=== PATIENT | female | born 1995 | race Caucasian/White ===

== ENCOUNTER 2017-03-07 11:36 | Emergency (ER) | payer SELFPAY ==
[2017-03-07 11:41] VITALS: BP 127/60; PULSE 104; RESP 20; TEMP 98.6
--- NOTE | 2017-03-07 12:21 | XR ---
EXAMINATION TYPE: XR chest 2V DATE OF EXAM: 03/07/2017 COMPARISON: 10/11/2013 HISTORY: Chest pain TECHNIQUE: Frontal and lateral views of the chest are obtained. FINDINGS: There is no focal air space opacity. No evidence for pneumothorax. No pleural effusion. The cardiac silhouette size is within normal limits. The osseous structures are grossly intact. IMPRESSION: 1. No acute cardiopulmonary process.
--- NOTE | 2017-03-07 12:30 | ED ---
URI HPI - General Chief Complaint: Upper Respiratory Infection Stated Complaint: congestion, mucus, drainage Time Seen by Provider: 03/07/17 12:02 Source: patient, RN notes reviewed Mode of arrival: ambulatory Limitations: no limitations - History of Present Illness Initial Comments: 21-year-old female presented for a cough and cold-like symptoms over the last 2 days. Patient states that she's been taken multiple pxll-yao-pheynrt medications no relief. Denies fever, chills. She states she has nasal congestion, nose irritation, ear pressure. She states her cough is very minimal usually only in the morning. No sick contacts. Patient has multiple drug ALLERGIES. Denies chest pain, shortness breath, neck stiffness. - Related Data Home Medications Medication Instructions Recorded Confirmed Dm/Acetaminophen/Doxylamine [Vicks 2 cap PO HS PRN 03/07/17 03/07/17 Nyquil Liquicaps] Guaifenesin/Pseudoephedrne HCl 1 tab PO Q12H 03/07/17 03/07/17 [Mucinex D ER Tablet] Previous Rx's Medication Instructions Recorded Fluticasone Nasal [place] [Flonase 2 spr EA NOSTRIL DAILY #1 bottle 03/07/17 Nasal [place]] Allergies Allergy/AdvReac Type Severity Reaction Status Date / Time amoxicillin [Amoxicillin] Allergy Rash/Hives Verified 03/07/17 11:38 levofloxacin [From Levaquin] Allergy Rash/Hives Verified 03/07/17 11:38 shellfish derived Allergy Rash/Hives Verified 03/07/17 11:38 sulfamethoxazole Allergy Rash/Hives Verified 03/07/17 11:38 [From Bactrim] trimethoprim [From Bactrim] Allergy Rash/Hives Verified 03/07/17 11:38 venom-honey bee Allergy Swelling Verified 03/07/17 11:38 [bee venom (honey bee)] Review of Systems ROS Statement: Those systems with pertinent positive or pertinent negative responses have been documented in the HPI. ROS Other: All systems not noted in ROS Statement are negative. Past Medical History Past Medical History: Asthma History of Any Multi-Drug Resistant Organisms: None Reported Past Surgical History: Cholecystectomy, Tonsillectomy Additional Past Surgical History / Comment(s): Cervical sticked after baby delivery. Had to go to OR Past Anesthesia/Blood Transfusion Reactions: No Reported Reaction Past Psychological History: Anxiety Smoking Status: Never smoker Past Alcohol Use History: None Reported Past Drug Use History: None Reported - Past Family History Sister(s) Additional Family Medical History / Comment(s): ulceritated colitus. Mother endomertiosis General Exam Limitations: no limitations General appearance: alert, in no apparent distress Head exam: Present: atraumatic, normocephalic, normal inspection Eye exam: Present: normal appearance, PERRL, EOMI. Absent: scleral icterus, conjunctival injection, periorbital swelling ENT exam: Present: mucous membranes moist, TM's normal bilaterally, normal external ear exam, other (Nasal inflammation noted, nasal drainage). Absent: normal exam, normal oropharynx (Nasal drainage) Neck exam: Present: normal inspection, full ROM. Absent: tenderness, meningismus, lymphadenopathy Respiratory exam: Present: normal lung sounds bilaterally. Absent: respiratory distress, wheezes, rales, rhonchi, stridor Cardiovascular Exam: Present: regular rate, normal rhythm, normal heart sounds. Absent: systolic murmur, diastolic murmur, rubs, gallop, clicks Course Vital Signs 03/07/17 11:38 Temperature 98.6 F Pulse Rate 104 H Respiratory 20 Rate Blood Pressure 127/60 O2 Sat by Pulse 97 Oximetry Medical Decision Making - Medical Decision Making 21-year-old female presented for URI symptoms. Patient has no evidence acute bacterial infection. Patient was given nasal spray and advised take over-the- counter Sudafed. Patient's chest x-ray showed no acute abnormality. Patient's symptoms started 2 days ago. Return parameters were discussed. Disposition Clinical Impression: Upper respiratory infection Disposition: HOME SELF-CARE Condition: Stable Instructions: Upper Respiratory Infection (ED) Additional Instructions: Please return to the Emergency Department if symptoms worsen or any other concerns. Prescriptions: Fluticasone Nasal [place] [Flonase Nasal [place]] 2 spr EA NOSTRIL DAILY #1 bottle Referrals: Thang Miller DO [Primary Care Provider] - 1-2 days Time of Disposition: 12:30
== END 2017-03-07 12:33 | disposition home or self-care (01) ==
LOC: EC 11:36
DX: J06.9 Acute upper respiratory infection, unspecified (principal); Z91.013 Allergy to seafood; Z88.0 Allergy status to penicillin; Z88.1 Allergy status to other antibiotic agents; Z88.2 Allergy status to sulfonamides; Z91.030 Bee allergy status; Z79.899 Other long term (current) drug therapy
CPT/HCPCS: 71020; 99283

== ENCOUNTER 2019-05-11 13:33 | Emergency (ER) | payer OTHER ==
[2019-05-11 13:51] VITALS: RESP 16
[2019-05-11 15:08] LABS: Appearance,Urine Cloudy (Clear); Bilirubin,Urine Negative (Negative); Blood,Urine Trace (Negative); Color,Urine Yellow; Glucose,Urine (UA) Negative (Negative); Ketones,Urine Negative (Negative); Leukocyte Esterase,Urine Large (Negative); Mucus,Urine Many /hpf; Nitrite,Urine Negative (Negative); PH, Urine 6.5 (5.0-8.0); Protein,Urine Trace (Negative); RBC,Urine 6 /hpf (0-5); Specific Gravity,Urine 1.028 (1.001-1.035); Squamous Epithelial Cell,Urine 9 /hpf (0-4)
--- NOTE | 2019-05-11 16:28 | ED ---
Female Urogenital HPI - General Chief complaint: Vaginal Bleeding Stated complaint: Female , plevic pain, bleeding Time Seen by Provider: 05/11/19 14:30 Source: patient Mode of arrival: ambulatory Limitations: no limitations - History of Present Illness Initial comments: Patient is a 23-year-old female presenting to emergency Department with complaints of vaginal discharge and lower abdominal pain x 2 days. Patient states she noticed a small amount of discharge yesterday but then increased amount today. Patient does admit to being sexually active with one partner for the past 2 years. Patient has an IUD present. Patient describes the lower abdominal pain as mostly cramping and bilateral in nature. Patient denies fever, chills, burning with urination. Patient has no other complaints at this time. Upon arrival to ER, vital signs are stable. Last Menstrual Period: 04/27/19 - Related Data Previous Rx's Medication Instructions Recorded Cephalexin [Keflex] 500 mg PO BID 7 Days #14 cap 05/11/19 Allergies Allergy/AdvReac Type Severity Reaction Status Date / Time amoxicillin [Amoxicillin] Allergy Rash/Hives Verified 05/11/19 14:56 levofloxacin [From Levaquin] Allergy Rash/Hives Verified 05/11/19 14:56 shellfish derived Allergy Rash/Hives Verified 05/11/19 14:56 sulfamethoxazole Allergy Rash/Hives Verified 05/11/19 14:56 [From Bactrim] trimethoprim [From Bactrim] Allergy Rash/Hives Verified 05/11/19 14:56 venom-honey bee Allergy Swelling Verified 05/11/19 14:56 [bee venom (honey bee)] Review of Systems ROS Statement: Those systems with pertinent positive or pertinent negative responses have been documented in the HPI. ROS Other: All systems not noted in ROS Statement are negative. Past Medical History Past Medical History: Asthma History of Any Multi-Drug Resistant Organisms: None Reported Past Surgical History: Cholecystectomy, Tonsillectomy Additional Past Surgical History / Comment(s): Cervical sticked after baby delivery. Had to go to OR Past Anesthesia/Blood Transfusion Reactions: No Reported Reaction Past Psychological History: Anxiety Smoking Status: Never smoker Past Alcohol Use History: None Reported Past Drug Use History: None Reported - Past Family History Sister(s) Additional Family Medical History / Comment(s): ulceritated colitus. Mother endomertiosis General Exam - General Exam Comments Initial Comments: GENERAL: Well-appearing, well-nourished and in no acute distress. HEAD: Atraumatic, normocephalic. EYES: Pupils equal round and reactive to light, extraocular movements intact, sclera anicteric, conjunctiva are normal. ENT: TMs normal, nares patent, oropharynx clear without exudates. Moist mucous membranes. NECK: Normal range of motion, supple without lymphadenopathy or JVD. LUNGS: Breath sounds clear to auscultation bilaterally and equal. No wheezes rales or rhonchi. HEART: Regular rate and rhythm without murmurs, rubs or gallops. ABDOMEN: Mild suprapubic tenderness. Soft, normoactive bowel sounds. No guarding, no rebound. No masses appreciated. EXTREMITIES: Normal range of motion, no pitting or edema. No clubbing or cyanosis. NEUROLOGICAL: Cranial nerves II through XII grossly intact. Normal speech, normal gait. PSYCH: Normal mood, normal affect. SKIN: Warm, Dry, normal turgor, no rashes or lesions noted. Limitations: no limitations External exam: Present: other (White, clear discharge noted, odor noted). Absent: erythema, swelling, lesions, lacerations Speculum exam: Present: vaginal discharge. Absent: vaginal bleeding, foreign body, tissue, laceration By manual exam: Absent: cervical motion tenderness, adnexal mass Course Vital Signs 05/11/19 05/11/19 13:48 16:35 Temperature 99.0 F 98 F Pulse Rate 75 74 Respiratory 16 16 Rate Blood Pressure 102/70 122/64 O2 Sat by Pulse 99 97 Oximetry Medical Decision Making - Medical Decision Making Patient is a 23-year-old female presenting with vaginal discharge and lower abdominal cramping for 2 days. Patient denies fever, chills, burning with urination. On exam patient has mild suprapubic tenderness. Rest of exam is normal. On vaginal exam patient does have vaginal discharge. UA reveals greater than 182 WBCs. Urine hCG is not detected. Rapid Trichomonas is negative. Chlamydia and gonorrhea is pending at this time. Patient will be treated for a UTI. Patient is stable for discharge at this time. Patient will follow up with KAY[facility] MAKER as symptoms persist. Return parameters were discussed with the patient she verbalized understanding. Case discussed with Dr. higginbotham. - Lab Data Lab Results 05/11/19 05/11/19 05/11/19 Range/Units 14:45 14:45 14:47 Urine Color Yellow Urine Appearance Cloudy H (Clear) Urine pH 6.5 (5.0-8.0) Ur Specific [place] 1.028 (1.001-1.035) Urine Protein Trace H (Negative) Urine Glucose (UA) Negative (Negative) Urine Ketones Negative (Negative) Urine Blood Trace H (Negative) Urine Nitrite Negative (Negative) Urine Bilirubin Negative (Negative) Urine Urobilinogen 4.0 (<2.0) mg/dL Ur Leukocyte Esterase Large H (Negative) Urine RBC 6 H (0-5) /hpf Urine WBC >182 H (0-5) /hpf Ur Squamous Epith Cells 9 H (0-4) /hpf Urine Mucus Many H (None) /hpf Urine HCG, Qual Not Detected (Not Detectd) Trichomonas Ag (Rapid) Negative (Negative) Disposition Clinical Impression: UTI (urinary tract infection), Suprapubic abdominal pain Disposition: HOME SELF-CARE Condition: Stable Instructions (If sedation given, give patient instructions): Urinary Tract Infection in Women (ED) Additional Instructions: Please return to the Emergency Department if symptoms worsen or any other co ncerns. Take antibiotic as prescribed. Follow-up with K[facility] MAKER for further management if symptoms persist. Prescriptions: Cephalexin [Keflex] 500 mg PO BID 7 Days #14 cap Is patient prescribed a controlled substance at d/c from ED?: No Referrals: Thang Miller DO [Primary Care Provider] - 1-2 days
[2019-05-11 16:36] VITALS: BP 122/64; PULSE 74; TEMP 98
[2019-05-13 14:11] LABS: C. trachomatis,PCR Negative (Neg,Equiv); Chlamydia trachomatis Source Urine
[2019-05-13 14:16] LABS: N. gonorrhoeae,PCR Negative (Neg,Equiv); Neisseria Source Urine
== END 2019-05-11 16:36 | disposition home or self-care (01) ==
LOC: EC 13:33
DX: N39.0 Urinary tract infection, site not specified (principal); N89.8 Other specified noninflammatory disorders of vagina; Z88.0 Allergy status to penicillin; Z88.1 Allergy status to other antibiotic agents; Z91.013 Allergy to seafood; Z88.2 Allergy status to sulfonamides; Z91.030 Bee allergy status; Z98.890 Other specified postprocedural states
CPT/HCPCS: 81001; 81025; 87086; 87491; 87591; 87808; 99284

== ENCOUNTER 2019-09-24 15:07 | Emergency (ER) | payer OTHER ==
[2019-09-24 15:29] VITALS: TEMP 98.2
[2019-09-24 16:41] LABS: Appearance,Urine Cloudy (Clear); Bilirubin,Urine Negative (Negative); Blood,Urine Moderate (Negative); Color,Urine Yellow; Glucose,Urine (UA) Negative (Negative); Ketones,Urine Negative (Negative); Leukocyte Esterase,Urine Large (Negative); Mucus,Urine Few /hpf; Nitrite,Urine Negative (Negative); PH, Urine 5.5 (5.0-8.0); Protein,Urine Trace (Negative); RBC,Urine 16 /hpf (0-5); Specific Gravity,Urine 1.025 (1.001-1.035); Squamous Epithelial Cell,Urine 8 /hpf (0-4); WBC,Urine >182 /hpf (0-5)
[2019-09-24 18:12] VITALS: BP 111/85; PULSE 88; RESP 75
--- NOTE | 2019-09-24 18:16 | ED ---
Abdominal Pain HPI - General Chief Complaint: Abdominal Pain Stated Complaint: uterine pain, belly button pain Time Seen by Provider: 09/24/19 15:26 Source: patient Mode of arrival: ambulatory Limitations: no limitations - History of Present Illness Initial Comments: Patient is a 24-year-old female presenting to emergency Department with complaints of lower abdominal discomfort for 6 months now. Patient states she's also been having frequent UTIs for the past 6-12 months. Patient does admit to being sexually active but does use protection. Patient states she has an IUD in place for 4 years now. Patient states her lower abdominal discomfort is intermittent but feels like it has been increasing over the past couple months. Patient states she spoke with DONOR RECRUITER, Dr. Suarez today and is waiting for an appointment. She has yet to have a Pap smear. Patient is . Not currently . She denies fever, chills, nausea, vomiting, diarrhea. Patient is also complaining of irritation inside her belly button for the past 6 months as well. She does not know if they are related or not. She has no other complaints. Prior arrival to ER, vital signs are stable. - Related Data Previous Rx's Medication Instructions Recorded Cephalexin [Keflex] 500 mg PO BID 7 Days #14 cap 05/11/19 Cephalexin [Keflex] 500 mg PO BID 5 Days #10 cap 09/24/19 Allergies Allergy/AdvReac Type Severity Reaction Status Date / Time amoxicillin [Amoxicillin] Allergy Rash/Hives Verified 05/11/19 14:56 levofloxacin [From Levaquin] Allergy Rash/Hives Verified 05/11/19 14:56 shellfish derived Allergy Rash/Hives Verified 05/11/19 14:56 sulfamethoxazole Allergy Rash/Hives Verified 05/11/19 14:56 [From Bactrim] trimethoprim [From Bactrim] Allergy Rash/Hives Verified 05/11/19 14:56 venom-honey bee Allergy Swelling Verified 05/11/19 14:56 [bee venom (honey bee)] Review of Systems ROS Statement: Those systems with pertinent positive or pertinent negative responses have been documented in the HPI. ROS Other: All systems not noted in ROS Statement are negative. Past Medical History Past Medical History: Asthma History of Any Multi-Drug Resistant Organisms: None Reported Past Surgical History: Cholecystectomy, Tonsillectomy Additional Past Surgical History / Comment(s): Cervical sticked after baby delivery. Had to go to OR Past Anesthesia/Blood Transfusion Reactions: No Reported Reaction Past Psychological History: Anxiety Smoking Status: Never smoker Past Alcohol Use History: None Reported Past Drug Use History: None Reported - Past Family History Sister(s) Additional Family Medical History / Comment(s): ulceritated colitus. Mother endomertiosis General Exam - General Exam Comments Initial Comments: GENERAL: Well-appearing, well-nourished and in no acute distress. HEAD: Atraumatic, normocephalic. EYES: Pupils equal round and reactive to light, extraocular movements intact, sclera anicteric, conjunctiva are normal. ENT: TMs normal, nares patent, oropharynx clear without exudates. Moist mucous membranes. NECK: Normal range of motion, supple without lymphadenopathy or JVD. LUNGS: Breath sounds clear to auscultation bilaterally and equal. No wheezes rales or rhonchi. HEART: Regular rate and rhythm without murmurs, rubs or gallops. ABDOMEN: Soft, nontender, normoactive bowel sounds. No guarding, no rebound. No masses appreciated. EXTREMITIES: Normal range of motion, no pitting or edema. No clubbing or cyanosis. NEUROLOGICAL: Normal speech, normal gait. PSYCH: Normal mood, normal affect. SKIN: Warm, Dry, normal turgor, no rashes or lesions noted. Limitations: no limitations External exam: Present: normal external exam. Absent: lesions, lacerations Speculum exam: Present: erythema, vaginal discharge, cervical discharge, other (IUD present, displaced.) By manual exam: Present: cervical motion tenderness (mild) Course Vital Signs 09/24/19 09/24/19 09/24/19 15:25 18:10 19:07 Temperature 98.2 F 98.2 F Pulse Rate 76 88 88 Respiratory 18 75 H 75 H Rate Blood Pressure 113/86 111/85 111/85 O2 Sat by Pulse 96 98 98 Oximetry Medical Decision Making - Medical Decision Making Patient is a 24-year-old female presenting with lower abdominal discomfort for 6 months. Vaginal discharge for the last few weeks. Vitals are normal. On exam patient has erythema and cervical discharge as well as a partially displaced IUD. Cultures, STI testing were obtained and are pending at this time. Urine revealed moderate amount of blood, greater than 182 WBCs. Trichomonas is negative. HCG is not detected. I spoke with on-call DONOR RECRUITER, Dr. Ramirez who recommended to remove the IUD secondary to displacement and also to start antibiotics secondary to possible infection. IUD was removed without com plications. Patient will be given 250 mg of Rocephin as well as 1 g of azithromycin before DC. She will also be started on Keflex for possible UTI. Urine culture is pending at this time. She will follow up with Dr. Suarez's office tomorrow. Patient is agreement with this plan of care. Return parameters were discussed with the patient and she verbalized understanding. - Lab Data Lab Results 09/24/19 09/24/19 09/24/19 Range/Units 16:22 16:22 16:25 Urine Color Yellow Urine Appearance Cloudy H (Clear) Urine pH 5.5 (5.0-8.0) Ur Specific [place] 1.025 (1.001-1.035) Urine Protein Trace H (Negative) Urine Glucose (UA) Negative (Negative) Urine Ketones Negative (Negative) Urine Blood Moderate H (Negative) Urine Nitrite Negative (Negative) Urine Bilirubin Negative (Negative) Urine Urobilinogen 2.0 (<2.0) mg/dL Ur Leukocyte Esterase Large H (Negative) Urine RBC 16 H (0-5) /hpf Urine WBC >182 H (0-5) /hpf Ur Squamous Epith Cells 8 H (0-4) /hpf Urine Mucus Few H (None) /hpf Urine HCG, Qual Not Detected (Not Detectd) Trichomonas Ag (Rapid) Negative (Negative) Disposition Clinical Impression: Cervicitis, Malpositioned IUD, Lower abdominal pain Disposition: HOME SELF-CARE Condition: Stable Instructions (If sedation given, give patient instructions): Cervicitis (ED) Additional Instructions: Please return to the Emergency Department if symptoms worsen or any other concerns. Take antibiotic as prescribed. Follow-up with DONOR RECRUITER or PCP as discussed. Prescriptions: Cephalexin [Keflex] 500 mg PO BID 5 Days #10 cap Is patient prescribed a controlled substance at d/c from ED?: No Referrals: Thang Miller DO [Primary Care Provider] - 1-2 days Marianela Suarez DO [Doctor of Osteopathic Medicine] - 1-2 days
[2019-09-24] MEDS ORDERED: AZITHROMYCIN 250 MG TAB PO STA (18:36)
[2019-09-24] MEDS ORDERED: cefTRIAXone 250 MG VIAL IM STA (18:36)
[2019-09-25 14:02] LABS: C. trachomatis,PCR Negative (Neg,Equiv); Chlamydia trachomatis Source Cervix; N. gonorrhoeae,PCR Negative (Neg,Equiv); Neisseria Source Cervix
== END 2019-09-24 19:09 | disposition home or self-care (01) ==
LOC: EC 15:07
DX: N72 Inflammatory disease of cervix uteri (principal); T83.32XA Displacement of intrauterine contraceptive device, initial encounter; Z88.0 Allergy status to penicillin; Z88.1 Allergy status to other antibiotic agents; Z88.2 Allergy status to sulfonamides; Z91.013 Allergy to seafood; Z91.030 Bee allergy status; Z90.49 Acquired absence of other specified parts of digestive tract
CPT/HCPCS: 81001; 81025; 87070; 87086; 87491; 87591; 87808; 99284

== ENCOUNTER → 2019-09-25 | Outpatient (CLI) | payer OTHER ==
[~2019-09-25] MED LIST: AZITHROMYCIN 500 MG TAB PO STA; cefTRIAXone 250 MG VIAL IM STA
== END | disposition home or self-care (01) ==
LOC: LABMAIN 11:36
PROVIDERS: ATTEND Specialist/Technologist Athletic Trainer
DX: A64 Unspecified sexually transmitted disease (principal)
CPT/HCPCS: 96372; J0696

== ENCOUNTER 2020-06-18 17:43 | Emergency (ER) | payer OTHER ==
[2020-06-18 17:47] VITALS: TEMP 98.5
[2020-06-18] MEDS ORDERED: SODIUM CHLORIDE 0.9% 1,000 ML IV STA (18:40)
[2020-06-18] MEDS ORDERED: diphenhydrAMINE 50 MG/ML 1 ML VIAL IVP STA (18:41)
[2020-06-18] MEDS ORDERED: METOCLOPRAMIDE 5 MG/ML 2 ML VIAL IVP STA (18:41)
[2020-06-18] MEDS ORDERED: KETOROLAC 15 MG/ML 1 ML VIAL IVP STA (18:41)
[2020-06-18 19:19] LABS: Appearance,Urine Cloudy (Clear); Bilirubin,Urine Negative (Negative); Blood,Urine Negative (Negative); Color,Urine Light Yellow; Glucose,Urine (UA) Negative (Negative); Hyaline Casts,Urine 1 /lpf (0-2); Ketones,Urine Negative (Negative); Leukocyte Esterase,Urine Large (Negative); Mucus,Urine Rare /hpf; Nitrite,Urine Negative (Negative); PH, Urine 6.5 (5.0-8.0); Protein,Urine Negative (Negative); RBC,Urine 2 /hpf (0-5); Specific Gravity,Urine 1.015 (1.001-1.035); Squamous Epithelial Cell,Urine 5 /hpf (0-4); Urobilinogen,Urine <2.0 mg/dL (<2.0); WBC,Urine 20 /hpf (0-5)
--- NOTE | 2020-06-18 20:00 | ED ---
Headache HPI - General Chief Complaint: Headache Stated Complaint: Headach/dizzy Time Seen by Provider: 06/18/20 18:30 Mode of arrival: ambulatory Limitations: no limitations - History of Present Illness Initial Comments: Patient is a 25-year-old female presenting to emergency Department with complaints of a headache since been increasing over the past 3 days. She does have a history of headaches and migraines, she states she tried her [id number] medications at home with no relief of symptoms. Patient states nauseous, light sensitive now. She denies any injuries or trauma. She denies any dizziness, double vision. She states she has not at this time but is willing to check for . She denies any recent fever, chills, chest pain, shortness of breath. She has no further complaints at this time. - Related Data Previous Rx's Medication Instructions Recorded Cephalexin [Keflex] 500 mg PO BID 7 Days #14 cap 05/11/19 Cephalexin [Keflex] 500 mg PO BID 5 Days #10 cap 09/24/19 Allergies Allergy/AdvReac Type Severity Reaction Status Date / Time amoxicillin [Amoxicillin] Allergy Rash/Hives Verified 06/18/20 17:47 levofloxacin [From Levaquin] Allergy Rash/Hives Verified 06/18/20 17:47 shellfish derived Allergy Rash/Hives Verified 06/18/20 17:47 sulfamethoxazole Allergy Rash/Hives Verified 06/18/20 17:47 [From Bactrim] trimethoprim [From Bactrim] Allergy Rash/Hives Verified 06/18/20 17:47 venom-honey bee Allergy Swelling Verified 06/18/20 17:47 [bee venom (honey bee)] Review of Systems ROS Statement: Those systems with pertinent positive or pertinent negative responses have been documented in the HPI. ROS Other: All systems not noted in ROS Statement are negative. Past Medical History Past Medical History: Asthma History of Any Multi-Drug Resistant Organisms: None Reported Past Surgical History: Cholecystectomy, Tonsillectomy Additional Past Surgical History / Comment(s): Cervical sticked after baby delivery. Had to go to OR Past Anesthesia/Blood Transfusion Reactions: No Reported Reaction Past Psychological History: Anxiety Smoking Status: Never smoker Past Alcohol Use History: None Reported Past Drug Use History: None Reported - Past Family History Sister(s) Additional Family Medical History / Comment(s): ulceritated colitus. Mother endomertiosis General Exam - General Exam Comments Initial Comments: GENERAL: Patient is well-developed and well-nourished. Patient is nontoxic and in no acute distress. HEAD: Atraumatic, normocephalic. EYES: Pupils equal round and reactive to light, extraocular movements intact, sclera anicteric, conjunctiva are normal. Eyelids were unremarkable. ENT: TMs normal, nares patent, oropharynx clear without exudates. Moist mucous membranes. NECK: Normal range of motion, supple without lymphadenopathy or JVD. LUNGS: Unlabored respirations. Breath sounds clear to auscultation bilaterally and equal. No wheezes rales or rhonchi. HEART: Regular rate and rhythm without murmurs, rubs or gallops. ABDOMEN: Soft, nontender, normoactive bowel sounds. No guarding, no rebound. No masses appreciated. : Deferred MUSCULOSKELETAL: Normal extremities with adequate strength and normal range of motion, no pitting or edema. No clubbing or cyanosis. NEUROLOGICAL: Patient is alert and oriented x 3. Motor and sensory are also intact. Cranial nerves II through XII grossly intact. Symmetrical smile. Normal speech, normal gait. PSYCH: Normal mood, normal affect. SKIN: Warm, Dry, normal turgor, no rashes or lesions noted. Limitations: no limitations Course Vital Signs 06/18/20 06/18/20 17:44 20:26 Temperature 98.5 F Pulse Rate 61 59 L Respiratory 18 16 Rate Blood Pressure 108/71 107/68 O2 Sat by Pulse 100 99 Oximetry Medical Decision Making - Medical Decision Making Patient is a 25-year-old female here for headache that been increasing the past 3 days. She does have a history of headaches. Her vital signs are stable, her exam is unremarkable, no neural deficits. I did do a urine which was negative, gave her fluids and typical migraine cocktail with improvement in her symptoms. Patient states her headache is almost gone. She feels well to go home. I recommended trial of Excedrin extra strength for future migraines. If these continue she can follow up with her PCP for further management. Return parameters were discussed with the patient she verbalized understanding. - Lab Data Lab Results 06/18/20 06/18/20 Range/Units 19:07 19:07 Urine Color Light Yellow Urine Appearance Cloudy H (Clear) Urine pH 6.5 (5.0-8.0) Ur Specific [place] 1.015 (1.001-1.035) Urine Protein Negative (Negative) Urine Glucose (UA) Negative (Negative) Urine Ketones Negative (Negative) Urine Blood Negative (Negative) Urine Nitrite Negative (Negative) Urine Bilirubin Negative (Negative) Urine Urobilinogen <2.0 (<2.0) mg/dL Ur Leukocyte Esterase Large H (Negative) Urine RBC 2 (0-5) /hpf Urine WBC 20 H (0-5) /hpf Ur Squamous Epith Cells 5 H (0-4) /hpf Hyaline Casts 1 (0-2) /lpf Urine Mucus Rare H (None) /hpf Urine HCG, Qual Not Detected (Not Detectd) Disposition Clinical Impression: Headache Disposition: HOME SELF-CARE Condition: Stable Instructions (If sedation given, give patient instructions): Acute Headache (ED) Additional Instructions: Please return to the Emergency Department if symptoms worsen or any other concerns. Increase fluid intake over the next few days. Follow-up with PCP. Is patient prescribed a controlled substance at d/c from ED?: No Referrals: Thang Miller DO [Primary Care Provider] - 1-2 days
[2020-06-18 20:27] VITALS: BP 107/68; PULSE 59; RESP 16
== END 2020-06-18 20:27 | disposition home or self-care (01) ==
LOC: EC 17:43
DX: R51.9 Headache, unspecified (principal); Z88.0 Allergy status to penicillin; Z88.1 Allergy status to other antibiotic agents; Z91.013 Allergy to seafood; Z88.2 Allergy status to sulfonamides; Z91.030 Bee allergy status
CPT/HCPCS: 81001; 81025; 87086; 99284; 96374; 96375 ×2; 96361; J1200; J2765; J1885; 96360

== ENCOUNTER 2022-03-26 11:09 | Emergency (ER) | payer OTHER ==
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
[2022-03-26] MEDS ORDERED: ONDANSETRON 4 MG/2 ML VIAL IVP STA (12:45)
[2022-03-26] MEDS ORDERED: SODIUM CHLORIDE 0.9% 1,000 ML IV STA (12:45)
[2022-03-26 13:19] LABS: Basophils % (A) 0 %; Eosinophils % (A) 1 %; HCT 41.7 % (34.0-46.0); HGB 13.6 gm/dL (11.4-16.0); Lymphocytes # (A) 0.3 k/uL (1.0-4.8); Lymphocytes % (A) 4 %; MCH 29.5 pg (25.0-35.0); MCHC 32.5 g/dL (31.0-37.0); MCV 90.8 fL (80.0-100.0); Monocytes # (A) 0.2 k/uL (0-1.0); Monocytes % (A) 3 %; Neutrophils # (A) 6.3 k/uL (1.3-7.7); Neutrophils % (A) 92 %; Platelet Count 196 k/uL (150-450); WBC 6.9 k/uL (3.8-10.6)
[2022-03-26 13:35] LABS: ALT 13 U/L (4-34); AST 19 U/L (14-36); African American GFR (CKD) >90 (>60 ml/min/1.73 sqM); Albumin 4.1 g/dL (3.5-5.0); Alkaline Phosphatase 60 U/L (38-126); Anion Gap 7 mmol/L; Blood Urea Nitrogen 7 mg/dL (7-17); Calcium 8.8 mg/dL (8.4-10.2); Carbon Dioxide 22 mmol/L (22-30); Chloride 109 mmol/L (98-107); Glucose 87 mg/dL (74-99); Non-African American GFR(CKD) >90 (>60 ml/min/1.73 sqM); Potassium 3.8 mmol/L (3.5-5.1); Sodium 138 mmol/L (137-145); Total Bilirubin 0.3 mg/dL (0.2-1.3); Total Protein 6.7 g/dL (6.3-8.2)
[2022-03-26] MEDS ORDERED: KETOROLAC 15 MG/ML 1 ML VIAL IVP STA (13:59)
[2022-03-26 14:00] LABS: Appearance,Urine Cloudy (Clear); Bacteria,Urine Few /hpf; Bilirubin,Urine Negative (Negative); Blood,Urine Large (Negative); Color,Urine Yellow; Glucose,Urine (UA) Negative (Negative); Ketones,Urine 1+ (Negative); Leukocyte Esterase,Urine Large (Negative); Mucus,Urine Occasional /hpf; Nitrite,Urine Negative (Negative); PH, Urine 7.5 (5.0-8.0); Protein,Urine 1+ (Negative); RBC,Urine 88 /hpf (0-5); Squamous Epithelial Cell,Urine 11 /hpf (0-4); Urobilinogen,Urine <2.0 mg/dL (<2.0); WBC,Urine 125 /hpf (0-5)
[2022-03-26] MEDS ORDERED: diphenhydrAMINE 50 MG/ML 1 ML VIAL IVP STA (14:01)
[2022-03-26] MEDS ORDERED: cefTRIAXone IN SWFI 1,000 MG/10 ML SYRINGE IVP STA (14:23)
--- NOTE | 2022-03-26 15:44 | US ---
EXAMINATION TYPE: US renals and bladder DATE OF EXAM: 03/26/2022 COMPARISON: CT abdomen and pelvis 2014 CLINICAL HISTORY: uti, back pain, hx of kidney stones. EXAM MEASUREMENTS: Right Kidney: 11.0 x 4.1 x 4.7 cm Left Kidney: 11.4 x 5.0 x 4.4 cm Extensive overlying bowel gas technically difficult limited study. Right Kidney: No hydronephrosis or masses seen in this somewhat limited study Left Kidney: No hydronephrosis or masses seen in this somewhat limited study Bladder: wnl, not fully distended Suboptimal study noted technically difficult by the technologist performing the exam. Kidney symmetri c and within normal limits in size. No obvious hydronephrosis. No concerning renal masses on images s aved. No shadowing nephrolithiasis. Bladder not greatly distended. IMPRESSION: Suboptimal study without hydronephrosis seen bilaterally.
[2022-03-26 16:49] VITALS: BP 104/60; PULSE 95; RESP 16; TEMP 99
== END 2022-03-26 16:47 | disposition home or self-care (01) ==
LOC: EC 11:09
DX: R51.9 Headache, unspecified (principal); N39.0 Urinary tract infection, site not specified; Z91.030 Bee allergy status; Z91.013 Allergy to seafood; Z88.6 Allergy status to analgesic agent; Z88.2 Allergy status to sulfonamides; Z88.8 Allergy status to other drugs, medicaments and biological substances
CPT/HCPCS: 36415; 80053; 85025; 81001; 87086; 76770; 99284; 96374; 96375; 96361; J1200; J2405; J0696; J1885

== ENCOUNTER 2022-07-23 09:33 | Emergency (ER) | payer OTHER ==
[2022-07-23 09:37] VITALS: TEMP 98.6
[2022-07-23 09:57] LABS: Basophils % (A) 1 %; Eosinophils # (A) 0.2 k/uL (0-0.7); Eosinophils % (A) 3 %; HCT 40.3 % (34.0-46.0); HGB 13.7 gm/dL (11.4-16.0); Lymphocytes # (A) 1.2 k/uL (1.0-4.8); Lymphocytes % (A) 24 %; MCH 30.3 pg (25.0-35.0); MCV 89.2 fL (80.0-100.0); Mean Platelet Volume 9.4; Monocytes # (A) 0.2 k/uL (0-1.0); Monocytes % (A) 5 %; Neutrophils # (A) 3.3 k/uL (1.3-7.7); Neutrophils % (A) 65 %; Platelet Count 209 k/uL (150-450); RBC 4.52 m/uL (3.80-5.40); RDW 12.2 % (11.5-15.5)
[2022-07-23 10:36] LABS: ALT 15 U/L (4-34); AST 18 U/L (14-36); African American GFR (CKD) >90 (>60 ml/min/1.73 sqM); Albumin 4.2 g/dL (3.5-5.0); Alkaline Phosphatase 49 U/L (38-126); Anion Gap 6 mmol/L; Blood Urea Nitrogen 8 mg/dL (7-17); Calcium 8.7 mg/dL (8.4-10.2); Carbon Dioxide 24 mmol/L (22-30); Chloride 111 mmol/L (98-107); Glucose 94 mg/dL (74-99); Non-African American GFR(CKD) >90 (>60 ml/min/1.73 sqM); Potassium 4.3 mmol/L (3.5-5.1); Sodium 141 mmol/L (137-145); Total Bilirubin 0.5 mg/dL (0.2-1.3); Total Protein 6.7 g/dL (6.3-8.2)
[2022-07-23 13:09] LABS: Urn Cannabinoid Scrn Detected (NotDetected)
[2022-07-23 13:10] LABS: Amphetamine Screen,Urine Not Detected (NotDetected); Appearance,Urine Cloudy (Clear); Bacteria,Urine Rare /hpf; Barbiturate Screen,Urine Not Detected (NotDetected); Benzodiazepines Screen,Urine Not Detected (NotDetected); Bilirubin,Urine Negative (Negative); Blood,Urine Negative (Negative); Cocaine Screen,Urine Not Detected (NotDetected); Color,Urine Light Yellow; Glucose,Urine (UA) Negative (Negative); Ketones,Urine Negative (Negative); Leukocyte Esterase,Urine Large (Negative); Methadone Screen, Urine Not Detected (NotDetected); Mucus,Urine Rare /hpf; Nitrite,Urine Negative (Negative); Opiate Screen,Urine Not Detected (NotDetected); Oxycodone Screen, Urine Not Detected (NotDetected); Phencyclidine Screen,Urine Not Detected (NotDetected); Protein,Urine Trace (Negative); RBC,Urine 3 /hpf (0-5); Specific Gravity,Urine 1.015 (1.001-1.035); Squamous Epithelial Cell,Urine 9 /hpf (0-4); Tricyclic Antidepressant,Urine Not Detected (NotDetected); Urobilinogen,Urine <2.0 mg/dL (<2.0); WBC,Urine 117 /hpf (0-5)
[2022-07-23] MEDS ORDERED: LORazepam 0.5 MG TAB PO STA (13:15)
[2022-07-23] MEDS ORDERED: ACETAMINOPHEN TAB 500 MG TAB PO STA (13:16)
[2022-07-23] MEDS ORDERED: SODIUM CHLORIDE 0.9% 1,000 ML IV STA (13:16)
--- NOTE | 2022-07-23 13:48 | XR ---
EXAMINATION TYPE: XR chest 2V DATE OF EXAM: 07/23/2022 COMPARISON: 03/07/2017 INDICATION: Syncope TECHNIQUE: Frontal and lateral views of the chest are obtained. FINDINGS: The heart size is normal. The pulmonary vasculature is normal. The lungs are clear. IMPRESSION: 1. No acute pulmonary process.
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
[2022-07-23 13:58] VITALS: BP 106/69; PULSE 60; RESP 16
--- NOTE | 2022-07-23 14:18 | CT ---
EXAMINATION TYPE: CT brain cspine wo con DATE OF EXAM: 07/23/2022 COMPARISON: NONE HISTORY: blacking out headache and neck pain after syncope. CT DLP: 1114.4 mGycm. Automated Exposure Control for Dose Reduction was Utilized. TECHNIQUE: CT scan of the head and cervical spine are performed without contrast. FINDINGS: There is no acute intracranial hemorrhage, mass effect, or midline shift identified. The ventricles and sulci are within normal limits in size. Noel-white matter differentiation is maintain ed. The calvarium is intact. The globes are intact and the visualized sinuses are clear. Cervical spine is visualized in its entirety from C1 through upper thoracic levels and demonstrates s atisfactory alignment without evidence of acute fracture or dislocation. Prevertebral soft tissue ap pears within normal limits. The C1-C2 articulation is within normal limits on the coronal images. V ertebral body heights and disc space heights are maintained. Spinal canal is preserved. Thyroid gland appears within normal limits. Lungs apices show no pneumothorax. IMPRESSION: 1. There is no acute fracture or dislocation evident in the cervical spine. 2. No acute intracranial hemorrhage or midline shift is seen.
== END 2022-07-23 16:29 | disposition home or self-care (01) ==
LOC: EC 09:33
DX: R45.851 Suicidal ideations (principal); R55 Syncope and collapse; J45.909 Unspecified asthma, uncomplicated; F41.9 Anxiety disorder, unspecified; Z88.0 Allergy status to penicillin; Z88.2 Allergy status to sulfonamides; Z88.1 Allergy status to other antibiotic agents; Z91.030 Bee allergy status; Z90.49 Acquired absence of other specified parts of digestive tract
CPT/HCPCS: 36415; 93005; 80053; 84443; 84484; 85025; 81001; 81025; 80306; 87086; 71046; 72125; 70450; 99285; 96360; G0480; 80320